=== PATIENT | male | born 1955 | race African-American/Black ===

== ENCOUNTER 2024-09-17 07:50 | Emergency (ER) | payer MEDICARE, MEDICAID ==
[~2024-09-17] VITALS: Ht 167.6 cm; Wt 83.0 kg
[~2024-09-17 07:50] MED LIST: ALD50 MT; AMLO5TAB88 PO; FURO40TA5 MT; POTA-202 MT
[2024-09-17 08:01] VITALS: O2SAT 99
[2024-09-17 09:05] LABS: BASOPHILS % 0.7 % (0.0-2.0); EOSINOPHILS % 2.4 % (0.0-5.0); LYMPHOCYTES % 10.4 % (20.0-50.0); MONOCYTES % 12.1 % (2.0-8.0); NEUTROPHILS % 74.4 % (40.0-76.0); RED BLOOD CELL COUNT 3.28 mill/uL (4.7-6.1); RED CELL DISTRIBUTION WIDTH 20.6 % (11.6-14.6)
[2024-09-17 09:17] LABS: CREATININE 1.7 mg/dL (0.6-1.3)
[2024-09-17 09:18] LABS: UREA NITROGEN BLOOD 37.0 mg/dL (9-23)
[2024-09-17 09:39] LABS: ADD RBC MORPHOLOGY YES; HEMATOCRIT. 22.7 % (42.0-52.0); HEMOGLOBIN. 6.7 g/dL (14.0-18.0)
[2024-09-17 13:03] VITALS: BP 173/84; PULSE 65; RESP 21; TEMP 36.6; O2SAT 99
[2024-09-17 13:45] LABS: PLATELET 286 x1000/uL (130-400)
[2024-09-17 13:46] LABS: PLATELET ESTIMATE NORMAL
== END 2024-09-17 13:41 | disposition left against medical advice (07) ==
LOC: ER 07:50 → EDBEDREQ 09:52 → EDBEDREQTM 09:52 → EDBEDREQ 09:53 → ENRESERV 10:10 → ER 13:41 → CMPBEDREQ 14:39
DX: I11.0 Hypertensive heart disease with heart failure (principal); I50.9 Heart failure, unspecified; Z79.899 Other long term (current) drug therapy; Z98.890 Other specified postprocedural states; F12.90 Cannabis use, unspecified, uncomplicated; D64.9 Anemia, unspecified
CPT/HCPCS: 36415; 36430; 80048; 85025; 86850; 86900; 86920; 99291; P9016

== ENCOUNTER 2024-09-25 05:46 | Inpatient (IN) | payer MEDICARE, MEDICAID ==
[~2024-09-25] VITALS: Ht 170.2 cm; Wt 81.7 kg
[2024-09-25 06:55] LABS: BASOPHILS % 0.8 % (0.0-2.0); EOSINOPHILS % 1.8 % (0.0-5.0); HEMATOCRIT. 28.8 % (42.0-52.0); HEMOGLOBIN. 8.6 g/dL (14.0-18.0); LYMPHOCYTES % 11.4 % (20.0-50.0); MEAN PLATELET VOLUME 9.1 fl (7.4-10.4); MONOCYTES % 6.9 % (2.0-8.0); NEUTROPHILS % 79.1 % (40.0-76.0); PLATELET 392 x1000/uL (130-400); RED BLOOD CELL COUNT 3.95 mill/uL (4.7-6.1); RED CELL DISTRIBUTION WIDTH 23.6 % (11.6-14.6)
[2024-09-25 06:56] LABS: ADD RBC MORPHOLOGY YES
[2024-09-25] MEDS: FUROSEMIDE 40MG/4ML VIAL IVP ONE (07:06)
[2024-09-25 07:09] LABS: CREATININE 1.7 mg/dL (0.6-1.3); UREA NITROGEN BLOOD 30 mg/dL (9-23)
[2024-09-25 07:10] LABS: TROPONIN I HIGH SENSITIVITY 53 ng/L (3.0-53)
[2024-09-25 08:45] VITALS: BP 177/100; PULSE 80; RESP 18; TEMP 36.14
[2024-09-25 08:50] LABS: TROPONIN I HIGH SENSITIVITY 51 ng/L (3.0-53)
[2024-09-25] MEDS ORDERED: CLONIDINE 0.1MG TABLET PO PRN (09:45)
[2024-09-25] MEDS ORDERED: ONDANSETRON HCL 4MG/2ML INJ IV PRN (09:45)
[2024-09-25] MEDS ORDERED: ACETAMINOPHEN 325MG TABLET PO PRN ×2 (09:45)
[2024-09-25] MEDS ORDERED: IPRATROPIUM/ALBUTEROL 0.5-3(2.5)MG/3ML NEB HHN PRN (09:45)
[2024-09-25] MEDS ORDERED: DOCUSATE SODIUM 100MG CAPSULE PO PRN (09:45)
[2024-09-25] MEDS: LOSARTAN 50 MG TABLET PO SCH (10:29)
[2024-09-25] MEDS: CARVEDILOL 6.25 MG TABLET PO SCH (10:29)
[2024-09-25] MEDS: FUROSEMIDE 40MG/4ML VIAL IVP SCH (10:30)
[2024-09-25 12:00] VITALS: BP 145/85; PULSE 67; RESP 16; TEMP 36.3; O2SAT 97
[2024-09-25] MEDS: ENOXAPARIN 40MG/0.4ML SYR SUBCUT SCH (12:33)
[2024-09-25 13:26] LABS: CREATINE KINASE MB FRACTION 2.0 ng/mL (0.5-3.6)
[2024-09-25 13:27] LABS: TROPONIN I HIGH SENSITIVITY 45.0 ng/L (3.0-53)
[2024-09-25 13:38] LABS: PLATELET ESTIMATE NORMAL
[2024-09-25 19:20] LABS: HEPATITIS C AB NON REACTIVE (Neg) (Negative)
[2024-09-25 20:00] VITALS: BP 154/91; PULSE 68; RESP 20; TEMP 36.4; O2SAT 100
[2024-09-26] VITALS (12 sets, daily range): BP systolic 128–153; BP diastolic 71–88; PULSE 62–73; RESP 16–20; TEMP 36.3–36.9; O2SAT 97–100
[2024-09-26] MEDS: IPRATROPIUM/ALBUTEROL 0.5-3(2.5)MG/3ML NEB HHN SCH (01:16)
[2024-09-26 01:35] LABS: CLARITY URINE CLEAR (CLEAR); COLOR URINE YELLOW (YELLOW); GLUCOSE URINE NEGATIVE (NEGATIVE); KETONES URINE NEGATIVE (NEGATIVE); LEUKOCYTE ESTERASE URINE NEGATIVE (NEGATIVE); NITRITE URINE NEGATIVE (NEGATIVE); OCCULT BLOOD URINE NEGATIVE (NEGATIVE); PH URINE 5.5 (4.5-8.0); PROTEIN URINE 3+ (NEGATIVE); SPECIFIC GRAVITY URINE 1.015 (1.005-1.030); UROBILINOGEN URINE 1.0 E.U./dL (0.2-1.0)
[2024-09-26 01:45] LABS: *AMPHETAMINES SCREEN URINE NEGATIVE (NEGATIVE); *BARBITURATES SCREEN URINE NEGATIVE (NEGATIVE); *BENZODIAZEPINES SCREEN URINE NEGATIVE (NEGATIVE); *COCAINE SCREEN URINE NEGATIVE (NEGATIVE)
[2024-09-26 01:46] LABS: CANNABINOID URINE SCREEN NEGATIVE (NEGATIVE); ECSTASY MDMA SCREEN URINE NEGATIVE (NEGATIVE); METHADONE URINE SCREEN NEGATIVE (NEGATIVE); OPIATES URINE SCREEN NEGATIVE (NEGATIVE); PHENCYCLIDINE URINE SCREEN NEGATIVE (NEGATIVE)
[2024-09-26 02:11] LABS: BACTERIA URINE NONE SEEN; FINE GRANULAR CASTS URINE 0-5 /lpf; RBC URINE 0-2 /hpf (0-2); SQUAMOUS EPITHELIAL CELL URINE 1+ /lpf (RARE/1+); WBC URINE NONE SEEN /hpf (0-2)
[2024-09-26 05:27] LABS: INR 1.3
[2024-09-26 05:38] LABS: CREATININE 1.8 mg/dL (0.6-1.3); TRIGLYCERIDE 85 mg/dL (0-150); UREA NITROGEN BLOOD 40 mg/dL (9-23)
[2024-09-26 05:39] LABS: LDL CHOLESTEROL 50 mg/dL (5-100)
[2024-09-26 05:40] LABS: ASPARTATE AMINOTRANSFERASE 15 IU/L (<34); BILIRUBIN DIRECT 0.8 mg/dL (<=3.0); BILIRUBIN TOTAL 2.2 mg/dL (0.1-1.0); PHOSPHORUS 3.3 mg/dL (2.5-4.9); PROTEIN TOTAL 7.0 g/dL (6.0-8.3)
[2024-09-26 05:46] LABS: VITAMIN B12 SERUM 885 pg/mL (211-911)
[2024-09-26 06:00] LABS: FOLIC ACID (FOLATE) SERUM > 20.00 ng/mL (>5.38)
[2024-09-26 06:27] LABS: BASOPHILS % 0.7 % (0.0-2.0); EOSINOPHILS % 3.1 % (0.0-5.0); HEMATOCRIT. 26.5 % (42.0-52.0); HEMOGLOBIN. 8.2 g/dL (14.0-18.0); LYMPHOCYTES % 9.5 % (20.0-50.0); MEAN PLATELET VOLUME 9.0 fl (7.4-10.4); MONOCYTES % 8.2 % (2.0-8.0); NEUTROPHILS % 78.5 % (40.0-76.0); PLATELET 391 x1000/uL (130-400); RED BLOOD CELL COUNT 3.73 mill/uL (4.7-6.1); RED CELL DISTRIBUTION WIDTH 23.8 % (11.6-14.6)
[2024-09-26 07:14] LABS: ADD RBC MORPHOLOGY NO
[2024-09-26] MEDS: PANTOPRAZOLE SODIUM 40 MG/VIAL IV SCH (08:30)
[2024-09-26] MEDS ORDERED: FAMOTIDINE 20MG/2ML VIAL IV SCH (09:00)
[2024-09-26] MEDS: POTASSIUM CHLORIDE 20MEQ TABLET SR PO NR (09:44)
[2024-09-26] MEDS: DOCUSATE SODIUM 100MG CAPSULE PO SCH (21:00)
[2024-09-27] VITALS (9 sets, daily range): BP systolic 141–156; BP diastolic 66–84; PULSE 56–71; RESP 15–18; TEMP 35.9–36.8; O2SAT 98–100
[2024-09-27 07:51] LABS: CREATININE 1.9 mg/dL (0.6-1.3); INR 1.2; PLATELET 444 x1000/uL (130-400); RED BLOOD CELL COUNT 3.89 mill/uL (4.7-6.1); RED CELL DISTRIBUTION WIDTH 23.6 % (11.6-14.6)
[2024-09-27 07:52] LABS: UREA NITROGEN BLOOD 42 mg/dL (9-23)
[2024-09-27 07:54] LABS: ASPARTATE AMINOTRANSFERASE 15 IU/L (<34); BILIRUBIN DIRECT 0.8 mg/dL (<=3.0); BILIRUBIN TOTAL 1.8 mg/dL (0.1-1.0); PROTEIN TOTAL 7.8 g/dL (6.0-8.3)
[2024-09-27] MEDS: ENOXAPARIN 30MG/0.3ML SYR SUBCUT SCH (09:00)
[2024-09-27] MEDS: POTASSIUM CHLORIDE 20MEQ TABLET SR PO SCH (10:45)
[2024-09-27] MEDS ORDERED: ONDANSETRON HCL 4MG/2ML INJ IV PRN (14:30)
[2024-09-27] MEDS ORDERED: PROPOFOL 200MG/20ML VIAL IV ONE (14:35)
[2024-09-27] MEDS ORDERED: DEXTROSE 50% WATER 50ML SYRINGE IV PRN (22:45)
[2024-09-28] VITALS: BP 102/63; PULSE 61; RESP 19; TEMP 37; O2SAT 100
[2024-09-28 04:00] VITALS: BP 131/56; PULSE 58; RESP 18; TEMP 37; O2SAT 100
[2024-09-28] MEDS ORDERED: BLOOD SUGAR DIAGNOSTIC STRIP TEST SCH (07:20)
[2024-09-28] MEDS ORDERED: INSULIN LISPRO 100 UNITS/ML SUBCUT SCH (07:50)
[2024-09-28 08:00] VITALS: BP 141/71; PULSE 58; RESP 17; TEMP 36.4; O2SAT 98
[2024-09-28 08:31] LABS: BASOPHILS % 0.5 % (0.0-2.0); EOSINOPHILS % 5.2 % (0.0-5.0); HEMATOCRIT. 27.3 % (42.0-52.0); HEMOGLOBIN. 8.1 g/dL (14.0-18.0); LYMPHOCYTES % 8.4 % (20.0-50.0); MEAN PLATELET VOLUME 8.8 fl (7.4-10.4); MONOCYTES % 9.5 % (2.0-8.0); NEUTROPHILS % 76.4 % (40.0-76.0); PLATELET 420 x1000/uL (130-400); RED BLOOD CELL COUNT 3.83 mill/uL (4.7-6.1); RED CELL DISTRIBUTION WIDTH 23.6 % (11.6-14.6)
[2024-09-28] MEDS ORDERED: FAMO20TA8 MT (10:32)
[2024-09-28] MEDS ORDERED: FURO40TA5 MT (10:32)
[2024-09-28] MEDS ORDERED: COR6 PO (10:32)
[2024-09-28] MEDS ORDERED: LOSA50TA41 PO (10:32)
[2024-09-28 12:00] VITALS: BP 154/83; PULSE 71; RESP 16; TEMP 36.4; O2SAT 100
[2024-09-28] MEDS: POTASSIUM CHLORIDE 20MEQ TABLET SR PO NR (12:15)
[2024-09-28] MEDS: SPIRONOLACTONE 50MG TABLET PO SCH (12:28)
[2024-09-28 13:17] VITALS: PULSE 60; RESP 14
[2024-09-28 15:49] VITALS: BP 151/85; PULSE 72; RESP 17; TEMP 97.7
== END 2024-09-28 16:00 | disposition home or self-care (01) | DRG 291 ==
LOC: ER 05:46 → 6WST 07:39 → EDBEDREQ 07:42 → EDBEDREQTM 07:42 → ENRESERV 08:07
PROVIDERS: ADMIT Internal Medicine; ATTEND Internal Medicine
PROC: 0DB78ZX Excision of Stomach, Pylorus, Via Natural or Artificial Opening Endoscopic, Diagnostic (ICD-10-PCS; principal; 2024-09-27)
DX: I13.0 Hypertensive heart and chronic kidney disease with heart failure and stage 1 through stage 4 chronic kidney disease, or unspecified chronic kidney disease (principal); I50.31 Acute diastolic (congestive) heart failure; D50.9 Iron deficiency anemia, unspecified; N18.9 Chronic kidney disease, unspecified; E87.6 Hypokalemia; K29.70 Gastritis, unspecified, without bleeding; J44.9 Chronic obstructive pulmonary disease, unspecified; E80.6 Other disorders of bilirubin metabolism; F19.90 Other psychoactive substance use, unspecified, uncomplicated; K44.9 Diaphragmatic hernia without obstruction or gangrene; Z79.899 Other long term (current) drug therapy
CPT/HCPCS: 36415; 71045; 71250; 74176; 76604; 80048; 80061; 80076; 80305; 81003; 82270; 82550; 82553; 82607; 82728; 82746; 83036; 83540; 83550; 83735; 84100; 84145; 84484; 85025; 85027; 85044; 86705; 86850; 86900; 87340; 88305; 93005; 93970; 94070; 94640; 94664; 98960; 99285; J1650; J1938; J2470; J2704; J7040